=== PATIENT | female | born 1965 | race Caucasian/White ===

== ENCOUNTER → 2017-09-29 | Outpatient (CLI) | payer OTHER ==
[~2017-09-29] MED LIST: ADJUSTABLE COMM1 MIS; CPMMACHINE; FISHCAP4 PO; LEVO112T2 PO; MAGN100T2 PO; NAPR220C22 PO; VITA500T4 PO; WALKER WHEELS/F1 MIS
--- NOTE | 2017-09-30 18:48 | EKG ---
Date Performed: 09/29/2017 Time Performed: 08:43:14 PTAGE: 52 years EKG: SINUS BRADYCARDIA WITH SINUS ARRHYTHMIA BORDERLINE ECG NO PREVIOUS TRACING DOCTOR: Doug Eng Interpretating Date/Time 09/30/2017 18:43:31
== END ==
LOC: CPRE 08:27
PROVIDERS: ATTEND Surgery
DX: Z01.810 Encounter for preprocedural cardiovascular examination (principal); R00.1 Bradycardia, unspecified
CPT/HCPCS: 93005